=== PATIENT | female | born 1950 | race Caucasian/White ===

== ENCOUNTER 2021-04-01 10:16 | Emergency (ER) | payer MEDICARE ==
[2021-04-01 11:32] LABS: BASOPHIL 0.8 % (0-2); EOSINOPHIL 6.1 % (0-7); HCT 42.6 % (37.0-47.0); HGB 14.4 g/dl (12.5-16.0); LYMPHOCYTE 42.6 % (15-48); MCHC 33.8 g/dL (32.0-36.0); MCV 91.6 fL (78.0-100.0); MONOCYTE 6.2 % (0-12); MPV 10.2 fL (6.0-9.5); NEUTROPHIL 44.1 % (41-80); NRBC 0; PLT 228 K/uL (150-400); RBC 4.65 M/uL (4.20-5.40); RDW 13.4 % (11.5-14.0); WBC 6.6 K/uL (4.0-10.5)
[2021-04-01 11:57] LABS: ALBUMIN 3.8 g/dL (3.4-5.0); BILIRUBIN - TOTAL 0.7 mg/dL (0.2-1.0); BUN/CREAT RATIO (CALC) 24.7 RATIO; CREATININE 0.77 mg/dL (0.51-0.95); GLOBULIN (CALCULATION) 3.5 g/dL; POTASSIUM 3.9 mmol/L (3.5-5.1); TOTAL PROTEIN 7.3 g/dL (6.4-8.2)
[2021-04-01 12:12] LABS: CKMB 4.1 ng/mL (0.0-3.6)
[2021-04-01 12:41] LABS: BILIRUBIN NEGATIVE (NEGATIVE); BLOOD TRACE-INTACT Ery/uL (NEGATIVE); CLARITY CLEAR (CLEAR); COLOR YELLOW (YELLOW); GLUCOSE (U) NORMAL (NORMAL); LEUKOCYTES 2+ Leu/uL (NEGATIVE); NITRITE POSITIVE (NEGATIVE); PROTEIN NEGATIVE (NEGATIVE); UROBILINOGEN 0.2 mg/dL (0.2-1.0); pH 5.5 (5.0-9.0)
[2021-04-01 13:09] LABS: BACTERIA 2+; URINARY RBC RARE
[2021-04-01] MEDS ORDERED: MACROBID100 MG PO (14:48)
== END 2021-04-01 15:35 | disposition home or self-care (01) ==
LOC: FER 10:16
PROVIDERS: Emergency Medicine
DX: R55 Syncope and collapse (principal); N39.0 Urinary tract infection, site not specified; I10 Essential (primary) hypertension; E03.9 Hypothyroidism, unspecified; Z88.5 Allergy status to narcotic agent; Z79.899 Other long term (current) drug therapy
CPT/HCPCS: 36415; 70450; 71046; 80053; 81001; 82553; 84443; 84484; 85025; 93005